=== PATIENT | male | born 1960 | race Caucasian/White ===

== ENCOUNTER 2021-07-07 09:21 | Day surgery (SDC) | payer BC ==
[2021-07-07] MEDS ORDERED: LACTATED RINGERS 1,000 ML IV ONE ×2 (09:41→11:18)
[2021-07-07] MEDS ORDERED: PROPOFOL 500 MG/50 ML 500 MG/50 ML VIAL ONE ×2 (10:01→10:50)
--- NOTE | 2021-07-07 10:14 | ANESTHESIA ---
Pre-Anesthesia VS, & Labs - Diagnosis family hx of colon CA/screening - Procedure colonoscopy Height: 6 ft 4 in Weight (kg): 98.2 kg Body Mass Index: 26.3 BMI Classification: Overweight - NPO >8 hours Home Medications and Allergies Home Medications: Ambulatory Orders Amlodipine Besylate [Norvasc] 2.5 mg PO DAILY 07/06/21 Fluticasone Propion/Salmeterol [Fluticasone-Salmeterol 250-50] 1 each IH DAILY 07/06/21 Budesonide [Pulmicort] 0.5 mg IH DAILY 07/07/21 Dupilumab [Dupixent Pen] 200 mg SQ 07/07/21 Amlodipine Besylate [Norvasc] 2.5 mg PO DAILY 07/06/21 Fluticasone Propion/Salmeterol [Fluticasone-Salmeterol 250-50] 1 each IH DAILY 07/06/21 Budesonide [Pulmicort] 0.5 mg IH DAILY 07/07/21 Dupilumab [Dupixent Pen] 200 mg SQ 07/07/21 Allergies/Adverse Reactions: Allergies Allergy/AdvReac Type Severity Reaction Status Date / Time amoxicillin Allergy NVD Verified 07/06/21 13:38 clavulanic acid AdvReac NVD Verified 07/06/21 13:37 [From Augmentin] Anes History & Medical History - Anesthetic History Anesthesia Complications: reports: No previous complications Family history of Anesthesia Complications: Denies Family history of Malignant Hyperthermia: Denies - Medical History Cardiovascular: reports: Hypertension Pulmonary: reports: Asthma, Other Gastrointestinal: reports: None Urinary: reports: None Musculoskeletal: reports: None Endocrine/Autoimmune: reports: None Skin: reports: None Smoking Status: Never smoker - Surgical History General: reports: Colonoscopy Eyes Ears Nose Throat (EENT): reports: Tonsil/Adenoidectomy, Other Exam General: Alert, Oriented x3, Cooperative Dental: WNL Mouth Openin Fingerbreadth Neck Mobility: Normal Mallampati classification: I Thyromental Distance: 4-6 cm Respiratory: Lungs clear Cardiovascular: Regular rate Plan Anesthesia Type: Total IV Consent for Procedure(s) Verified and Reviewed: Yes Code Status: Attempt Resuscitation ASA classification: 2-Mild systemic disease Is this case an emergency?: No
[2021-07-07] MEDS ORDERED: ONDANSETRON 4 MG/2 ML VIAL ONE (10:26)
--- NOTE | 2021-07-07 10:29 | HISTORY & PHYSICAL EXAMINATION ---
Chief Complaint - Chief Complaint Chief Complaint: here for colon cancer screening History of Present Illness - History Obtained From Records Reviewed: yes History obtained from: pt Exam Limitations: none - History of Present Illness HPI Comment/Other: Here for colon cancer screening. no problems History - Past Medical History Cardiovascular: reports: Hypertension Respiratory: reports: Asthma, Other Endocrine/Autoimmune: reports: None GI: reports: None : reports: None HEENT: reports: Chronic vision loss Psych: reports: None Musculoskeletal: reports: None Derm: reports: None MRSA Hx?: No - Past Surgical History General: reports: Colonoscopy HEENT: reports: Tonsil/Adenoidectomy, Other Meds/Allgy - Home Medications Home Medications: Ambulatory Orders Medication Instructions Recorded Confirmed Amlodipine Besylate [Norvasc] 2.5 mg PO DAILY 07/06/21 07/06/21 Fluticasone Propion/Salmeterol 1 each IH DAILY 07/06/21 07/06/21 [Fluticasone-Salmeterol 250-50] Budesonide [Pulmicort] 0.5 mg IH DAILY 07/07/21 07/07/21 Dupilumab [Dupixent Pen] 200 mg SQ 07/07/21 - Allergies Allergies/Adverse Reactions: Allergies Allergy/AdvReac Type Severity Reaction Status Date / Time amoxicillin Allergy NVD Verified 07/06/21 13:38 clavulanic acid AdvReac NVD Verified 07/06/21 13:37 [From Augmentin] Review of Systems - Other Findings Other Findings: 10 pt ros as above otherwise unremarkable Exam - Physical Exam General Appearance: positive: No acute distress, Alert Eyes Bilateral: positive: PERRL, EOMI, No scleral icterus ENT: positive: No signs of dehydration Neck: positive: No JVD Respiratory: positive: No respiratory distress, Breath sounds nml Cardiovascular: positive: Regular rate & rhythm Abdomen: positive: Non-tender, No distention Neurologic/Psychiatric: positive: Oriented x3 Conclusion/Plan - Problem List (1) Colon cancer screening Conclusion/Plan: plan colonoscopy. parq held and consent obtained
[2021-07-07 11:39] VITALS: BP 121/88
--- NOTE | 2021-07-07 13:52 | ANESTHESIA POST OP EVALUATION ---
Anesthesia Post Eval - Post Anesthesia Eval Vitals: Last Vital Signs Temp 36.3 C L 07/07/21 11:38 Pulse 79 07/07/21 11:38 Resp 16 07/07/21 11:38 BP 121/88 H 07/07/21 11:38 Pulse Ox 97 07/07/21 11:38 CV Function Including HR & BP: Stable Pain Control: Satisfactory Nausea & Vomiting: Negative Mental Status: Baseline Respiratory Status: Airway Patent Hydration Status: Satisfactory Anesthesia Complications: None
== END 2021-07-07 09:22 | disposition home or self-care (01) ==
LOC: SDS 09:21
PROVIDERS: ATTEND Surgery
PROC: 0DBL8ZZ Excision of Transverse Colon, Via Natural or Artificial Opening Endoscopic (ICD-10-PCS; 2021-07-07)
PROC: 0DBH8ZZ Excision of Cecum, Via Natural or Artificial Opening Endoscopic (ICD-10-PCS; 2021-07-07)
PROC: 0DBK8ZZ Excision of Ascending Colon, Via Natural or Artificial Opening Endoscopic (ICD-10-PCS; principal; 2021-07-07 10:30)
DX: Z12.11 Encounter for screening for malignant neoplasm of colon (principal); D12.3 Benign neoplasm of transverse colon; D12.2 Benign neoplasm of ascending colon; D12.0 Benign neoplasm of cecum; K57.30 Diverticulosis of large intestine without perforation or abscess without bleeding; J45.909 Unspecified asthma, uncomplicated
CPT/HCPCS: 45380; 45385; J7120